=== PATIENT | female | born 1935 | race Two or more races ===

== ENCOUNTER 2018-07-10 21:15 | Emergency (ER) | payer OTHER ==
[~2018-07-10] VITALS: Ht 165.1 cm; Wt 70.3 kg
[2018-07-10] MEDS ORDERED: PEPCID20 MG (21:31)
[2018-07-10] MEDS ORDERED: COZAAR25 MG (21:31)
[2018-07-10] MEDS ORDERED: ZOCOR5 MG (21:32)
[2018-07-10] MEDS ORDERED: MICARDIS40 MG (21:32)
== END 2018-07-10 22:55 | disposition home or self-care (01) ==
LOC: ER 21:15
DX: S80.02XA Contusion of left knee, initial encounter (principal); S80.01XA Contusion of right knee, initial encounter; W18.09XA Striking against other object with subsequent fall, initial encounter; Y93.89 Activity, other specified; Y92.018 Other place in single-family (private) house as the place of occurrence of the external cause; Y99.8 Other external cause status